=== PATIENT | female | born 1995 | race Caucasian/White ===

== ENCOUNTER 2019-12-25 20:18 | Emergency (ER) | payer OTHER ==
[2019-12-25 20:41] VITALS: BP 111/65
--- NOTE | 2019-12-25 21:07 | ER Document Report ---
ED Medical Screen (RME) - General Chief Complaint: Vag Bleeding, +preg <12wks Stated Complaint: VAGINAL BLEEDING Time Seen by Provider: 12/25/19 21:01 Mode of Arrival: Ambulatory Information source: Patient Notes: HPI; 24-year-old female who is a 1 presents to the emergency room complaining of vaginal bleeding that started earlier today. States she had a home test last week that was confirmed in her doctor's office. Also complaining of abdominal cramping. No medications for symptoms. States right now bleeding is similar to a normal menstrual cycle. PE: Alert and oriented x3. Lungs: Clear to auscultation without rales, rhonchi, wheezes. Heart: Regular rate rhythm without murmurs, rubs, gallops. I have greeted and performed a rapid initial assessment of this patient. A comprehensive ED assessment and evaluation of the patient, analysis of test results and completion of the medical decision making process will be conducted by additional ED providers. I have specifically instructed the patient or family members with the patient to immediately return to any nursing staff should anything change in the patient's condition or with their chief complaint. TRAVEL OUTSIDE OF THE [place] IN LAST 30 DAYS: No - Related Data Allergies/Adverse Reactions: sulfamethoxazole [From Bactrim] Allergy (Verified 12/25/19 20:58) trimethoprim [From Bactrim] Allergy (Verified 12/25/19 20:58) peanuts Allergy (Uncoded 12/25/19 20:58) Home Medications: vitamins Past Medical History - Social History Chew tobacco use (# tins/day): No Frequency of alcohol use: None Drug Abuse: None Physical Exam - Vital signs Vitals: Temp Pulse Resp BP Pulse Ox 98.9 F 96 16 111/65 97 12/25/19 20:39 12/25/19 20:39 12/25/19 20:39 12/25/19 20:39 12/25/19 20:39 Course - Vital Signs Vital signs: Temp Pulse Resp BP Pulse Ox 98.9 F 96 16 111/65 97 12/25/19 20:39 12/25/19 20:39 12/25/19 20:39 12/25/19 20:39 12/25/19 20:39
[2019-12-25] MEDS: ACETAMINOPHEN 325 MG TABLET PO ONE ×2 (21:23)
[2019-12-25 21:46] LABS: APPEARANCE,URINE CLEAR; BILIRUBIN,URINE NEGATIVE (NEGATIVE); COLOR,URINE STRAW; GLUCOSE, URINE NEGATIVE (NEGATIVE); KETONES,URINE NEGATIVE (NEGATIVE); LEUKOCYTE ESTERASE,URINE NEGATIVE (NEGATIVE); NITRITE,URINE NEGATIVE (NEGATIVE); PROTEIN,URINE NEGATIVE (NEGATIVE); URINE SPECIFIC GRAVITY 1.005; UROBILINOGEN,URINE NEGATIVE mg/dL (<2.0)
[2019-12-25 21:57] LABS: ALBUMIN 4.7 g/dL (3.5-5.0); ALKALINE PHOSPHATASE 48 U/L (38-126); ANION GAP 9 (5-19); ASPARTATE AMINO TRANSFERASE 17 U/L (14-36); BILIRUBIN,DIRECT 0.2 mg/dL (0.0-0.4); BLOOD UREA NITROGEN 8 mg/dL (7-20); CALCIUM 9.5 mg/dL (8.4-10.2); CARBON DIOXIDE 28 mmol/L (22-30); CHLORIDE 104 mmol/L (98-107); GLUCOSE 108 mg/dL (75-110); POTASSIUM 4.2 mmol/L (3.6-5.0); TOTAL PROTEIN 7.5 g/dL (6.3-8.2)
[2019-12-25 22:11] LABS: ABSOLUTE EOSINOPHILS # (AUTO) 0.2 10^3/uL (0.0-0.6); ABSOLUTE MONOCYTES (AUTO) 0.5 10^3/uL (0.1-1.4); BASOPHILS % (AUTO) 0.6 % (0-2); EOSINOPHILS % (AUTO) 2.8 % (0-6); HEMOGLOBIN 13.9 g/dL (12.0-15.5); LYMPHOCYTES % (AUTO) 26.3 % (13-45); MEAN CORPUSCULAR HEMOGLOBIN 29.8 pg (27.0-33.4); MEAN CORPUSCULAR HGB CONC 34.7 g/dL (32.0-36.0); MEAN CORPUSCULAR VOLUME 86 fl (80-97); MONOCYTES % (AUTO) 6.1 % (3-13); PLATELET COUNT 233 10^3/uL (150-450); RED BLOOD COUNT 4.66 10^6/uL (3.72-5.28); RED CELL DISTRIBUTION WIDTH 12.9 % (11.5-14.0); SEGMENTED NEUTROPHILS % (AUTO) 64.2 % (42-78); TOTAL CELLS COUNTED % (AUTO) 100 %; WHITE BLOOD COUNT 7.8 10^3/uL (4.0-10.5)
--- NOTE | 2019-12-25 22:14 | RADIOLOGY REPORT (SQ) ---
EXAM DESCRIPTION: US TRANSVAGINAL COMPLETED DATE/TME: 12/25/2019 21:05 CLINICAL HISTORY: 24 years, Female, bleeding/pain COMPARISON: None. TECHNIQUE: Emergent ultrasound LIMITATIONS: None. FINDINGS: The uterus measures 6.8 x 3.4 x 4.2 cm. The myometrium is homogenous. Tiny sonolucency within the endometrial canal could reflect very early gestational sac. No yolk sac or pole. Approximate ultrasound age is 5 weeks 0 days. The right ovary measures 3 by 2 x 2 centimeters, the left 3 x 2 x 3 cm. Normal flow to each ovary. No adnexal cyst or mass. No free fluid IMPRESSION: Tiny sonolucency within the endometrial canal could reflect very early gestational sac. Correlate with beta hCG levels. Close obstetric follow-up recommended. copyright 2010 [employer]- All Rights Reserved
--- NOTE | 2019-12-26 00:41 | ER Document Report ---
ED General - General Chief Complaint: Vag Bleeding, +preg <12wks Stated Complaint: VAGINAL BLEEDING Time Seen by Provider: 12/25/19 21:01 Mode of Arrival: Ambulatory TRAVEL OUTSIDE OF THE [place] IN LAST 30 DAYS: No - HPI Notes: Patient is a 24-year-old female, G1, P0 at approximately 5 weeks gestation, last menstrual period at the end of October, who presents to the emergency department for evaluation of vaginal bleeding. She had a test at home that was positive, plus verified her primary care provider's office. The patient states she started having vaginal bleeding yesterday. She describes it as a "light period" and is using pads to control. She denies any fevers or chills. No nausea or vomiting. Eating and drinking normally. - Related Data Allergies/Adverse Reactions: sulfamethoxazole [From Bactrim] Allergy (Verified 12/25/19 20:58) trimethoprim [From Bactrim] Allergy (Verified 12/25/19 20:58) peanuts Allergy (Uncoded 12/25/19 20:58) Home Medications: vitamins Past Medical History - General Information source: Patient - Social History Smoking Status: Never Smoker Chew tobacco use (# tins/day): No Frequency of alcohol use: None Drug Abuse: None Family History: Reviewed & Not Pertinent Musculoskeletal Medical History: Reports Hx Arthritis - Rheumatoid arthritis Past Surgical History: Reports: None Review of Systems - Review of Systems Constitutional: No symptoms reported EENT: No symptoms reported Cardiovascular: No symptoms reported Respiratory: No symptoms reported Gastrointestinal: No symptoms reported Female Genitourinary: See HPI Musculoskeletal: No symptoms reported Skin: No symptoms reported Neurological/Psychological: No symptoms reported Physical Exam - Vital signs Vitals: Temp Pulse Resp BP Pulse Ox 98.9 F 96 16 111/65 97 12/25/19 20:39 12/25/19 20:39 12/25/19 20:39 12/25/19 20:39 12/25/19 20:39 - Notes Notes: Vital signs reviewed, please refer to chart. Head is normocephalic, atraumatic. Pupils equal round, reactive to light. Neck is supple without meningismus. Heart is regular rate and rhythm. Lungs are clear to auscultation bilaterally. Abdomen is soft, nontender, normoactive bowel sounds throughout. Extremities without cyanosis, clubbing. Posterior calves are nontender. Peripheral pulses are equal. Skin is warm and dry. Patient is awake, alert, neurological exam is nonfocal. Course - Re-evaluation Re-evalutation: 12/26/19 00:43 Patient presents to the emergency department for evaluation of vaginal bleeding during early . For dates she should be about 5 weeks long. Her quantitative beta-hCG is found to be low. Her ultrasound reveals gestational sac only. I explained to the patient that this could simply be early , and dates are off, or she could be having a miscarriage at this time. I explained that she will have to have her quantitative beta-hCG repeated in 48 h ours. She voiced understanding. Otherwise the patient is Rh+. No RhoGam indicated. Patient is given pelvic rest instructions. I will have her quantitative beta-hCG repeated, reported to her primary care provider's office. She is to return to the ED with worsening or new concerning symptoms of any sort. - Vital Signs Vital signs: Temp Pulse Resp BP Pulse Ox 98.9 F 96 16 111/65 97 12/25/19 20:39 12/25/19 20:39 12/25/19 20:39 12/25/19 20:39 12/25/19 20:39 - Laboratory Result Diagrams: 12/25/19 21:17 12/25/19 21:17 Laboratory results interpreted by me: 12/25/19 12/25/19 21:17 21:17 Total Bilirubin 2.0 H Beta HCG, Quant 390.88 H Urine Blood LARGE H - Diagnostic Test Radiology reviewed: Reports reviewed Radiology results interpreted by me: 12/26/19 00:44 Transvaginal US 12/25/19 21:05 IMPRESSION: Tiny sonolucency within the endometrial canal could reflect very early gestational sac. Correlate with beta hCG levels. Close obstetric follow-up recommended. copyright 2010 [employer]- All Rights Reserved Discharge - Discharge Clinical Impression: Vaginal bleeding during Condition: Stable Disposition: HOME, SELF-CARE Instructions: Bleeding During Early ([facility]) Additional Instructions: Your quantitative beta, or your hormones, were low for dates. You need to have these repeated in 48 hours. These results will be sent to your primary care provider. It is difficult to tell the outcome of your at this time. If you develop increased pain, bleeding greater than 1 pad an hour, or any other new or concerning symptoms, please return immediately to the emergency department for evaluation. Otherwise, follow pelvic rest instructions as discussed. Forms: Follow-Up Laboratory Testing
== END 2019-12-26 00:46 | disposition home or self-care (01) ==
LOC: ER 20:18
DX: O20.9 Hemorrhage in early pregnancy, unspecified (principal); Z67.90 Unspecified blood type, Rh positive; Z79.899 Other long term (current) drug therapy; Z88.1 Allergy status to other antibiotic agents; Z91.010 Allergy to peanuts; Z3A.01 Less than 8 weeks gestation of pregnancy
CPT/HCPCS: 36415; 76817; 80053; 81001; 84702; 85025; 86900; 86901; 93976; 99284

== ENCOUNTER → 2019-12-27 | Outpatient (CLI) | payer OTHER | LOC: OD 16:12 | PROVIDERS: ATTEND Physician Assistant Medical | DX: O20.9 Hemorrhage in early pregnancy, unspecified (principal); Z3A.00 Weeks of gestation of pregnancy not specified | CPT/HCPCS: 36415; 84702 ==